=== PATIENT | male | born 1955 | race Caucasian/White ===

== ENCOUNTER 2024-04-19 12:50 | Day surgery (SDC) | payer MEDICARE ==
[2024-04-18 09:04] VITALS: BMI 32.8
[~2024-04-19 12:50] MED LIST: LACTATED RINGERS 1,000 ML IV SCH
[2024-04-19] MEDS: LACTATED RINGERS 1,000 ML IV SCH (13:36)
[2024-04-19] MEDS: LIDOCAINE 1% (10MG/ML) FOR IV START INTRADERMA STA (13:37)
[2024-04-19] MEDS: IV FLUID CONTINUATION 1,000 ML IV ONE (13:37)
--- NOTE | 2024-04-19 13:58 | CT ---
EXAMINATION TYPE: CT chest wo con DATE OF EXAM: 04/19/2024 COMPARISON: 03/06/2024 HISTORY: pain after fall CT DLP: 1202.2 mGycm. Automated Exposure Control for Dose Reduction was Utilized. TECHNIQUE: CT scan of the thorax is performed without IV contrast. FINDINGS: LUNGS: Multiple bilateral pulmonary micronodules. Groundglass changes likely in the basis of atelecta sis. Lobular septal thickening along the periphery of the lungs. No consolidative pneumonia. Correlat e for chronic interstitial lung disease or interstitial pneumonitis. Emphysematous changes. MEDIASTINUM: Lack of IV contrast is noted to limit evaluation for mediastinal and especially hilar ad enopathy. There are no definitive greater than 1 cm hilar or mediastinal lymph nodes. Ascending aorta measures 4.6 cm compatible aneurysmal dilation. Shotty subcentimeter mediastinal and hilar lymph nod es. Lack of contrast limits assessment. OTHER: Hypertrophic and degenerative change of the spine generalized demineralization. Small hiatal h ernia. Atrophy of the pancreas. Low-attenuation of the liver suggestive of hepatic steatosis. Coronar y artery calcification noted. Atherosclerotic change aorta. IMPRESSION: 1. COPD correlate for pulmonary fibrosis. 2. Right upper lobe lung nodule measuring 8 mm. Underlying malignancy in the differential diagnosis. 3. Additional bilateral pulmonary micronodules too small to characterize. 4. There is a 4.6 cm descending thoracic aortic aneurysm. Follow-up recommendations for incidental pulmonary nodules are per [employer] or [employer].
[2024-04-19] MEDS ORDERED: LIDOCAINE 1% INJ 10MG/ML (20 ML MDV) ONE (15:01)
[2024-04-19] MEDS ORDERED: NEOSTIGMINE 1 MG/ML 10 ML VIAL ONE (15:01)
[2024-04-19] MEDS ORDERED: GLYCOPYRROLATE 0.2 MG/ML 2 ML VIAL ONE (15:01)
[2024-04-19] MEDS ORDERED: ROCURONIUM 10 MG/ML (5 ML VIAL) IV ONE (15:01)
[2024-04-19] MEDS ORDERED: PHENYLEPHRINE-0.9% NACL SYG 1,000 MCG/10 ML SYRINGE ONE (15:01)
[2024-04-19] MEDS ORDERED: ePHEDrine 50 MG/ML 1 ML VIAL ONE (15:01)
[2024-04-19] MEDS ORDERED: SUCCINYLCHOLINE CHLORIDE 200 MG/10 ML VIAL IV ONE (15:01)
[2024-04-19] MEDS ORDERED: PROPOFOL 10 MG/ML 20 ML VIAL IV ONE (15:01)
[2024-04-19] MEDS ORDERED: fentaNYL (PF) 50 MCG/ML 2 ML AMP ONE (15:01)
[2024-04-19] MEDS: SODIUM CHLORIDE 0.9% 500 ML 500 ML IV ONE (15:55)
--- NOTE | 2024-04-19 16:04 | P.PCN ---
Date of Procedure: 04/19/24 Operative Findings: Preoperative Diagnosis: Right upper lobe nodule measuring 7x12 mm Postoperative Diagnosis: Right upper lobe nodule measuring 7x12 mm Procedure(s) Performed: Flexible bronchoscopy Robotic-assisted bronchoscopy and addition to radial ultrasound evaluation of the right upper lobe mass Robotic-assisted transbronchial needle aspirate, transbronchial biopsies and transbronchial brushing of a right upper lobe nodule in addition to a bronchioloalveolar lavage Anesthesia: JORIA Surgeon: Lauren Perdue Estimated Blood Loss (ml): 0 Pathology: other Condition: stable Disposition: same day Operative Findings: A physical exam was performed. Informed consent was obtained from the patient after explaining all the risks (pneumothorax, life threatening bleeding, infection and adverse effects due to medications), benefits and alternatives to the procedure which the patient appeared to understand and so stated. The patient was connected to the monitoring devices. General anesthesia was induced and the patient was intubated by anesthesia. A final timeout was performed and the procedure confirmed by the attending staff bronchoscopist. The bronchoscope was inserted and the airway examined. The patient had some secretions within the within the airways. The flexible bronchoscope was removed and the robotic bronchoscope was inserted. Registration was completed. I next guided the robotic bronchoscope using the navigation system into the right post. segment of the RUL. Once in proper position, the bronchoscope was frozen. The radial EBUS probe was placed through the bronchoscope and confirmed abnormal u/s images vs normal lung. A needle was placed through the working channel and under fluoroscopic guidance, we sampled the area thought to have the mass twice. We then used a cloud biopsy pattern with ultrasound confirmation for 2 additional passes with the needle. U/S evaluation was then used to reconfirm location. Forceps were next introduced through working channel and extended the appropriate distance and 3 transbronchial biopsies were performed using fluoroscopic guidance. The u/s probe was then reinserted to confirm location. When confirmed this process was repeated for a total of 8-10 transbronchial biopsies. After reassessment with EBUS, a brush was placed through the extendable working channel for 1 pass with fluoroscopic guidance. U/S evaluation was then used to confirm location. 40ml of saline was then instilled into the area of the lesion. The robotic bronchoscope was removed and the airway inspected with a flexible bronchoscope and 10 ml of effluent from the BAL was collected. The aspirate was bloody and ultimately declotted and based on that, the sample was discarded. Flex. bronchoscope was inserted and regular suctioning was done. At the completion of the procedure, no residual secretions or bloody material within the airway. The bronchoscope was removed. FINDINGS: 1.The airways appeared normal 2 Successful navigation, ultrasonographic identification, and biopsies of right upper lobe nodule 3 The the radial ultrasound view was concentric RECOMMENDATIONS: Await pathology and cytology results The referring physician will be alerted to the results when available. The patient was advised to follow up with the referring physician with the biopsy results Patient will be called with results.
[2024-04-19 16:14] VITALS: TEMP 97.2
[2024-04-19 17:17] VITALS: BP 116/65; PULSE 56; RESP 17
--- NOTE | 2024-04-19 17:58 | XR ---
EXAMINATION TYPE: XR chest 1V DATE OF EXAM: 04/19/2024 COMPARISON: 11/14/2023 HISTORY: 68-year-old male post biopsy to the right upper lobe TECHNIQUE: Single frontal view of the chest is obtained. FINDINGS: Limitation due to large patient body habitus causing hazy densities. Heart upper limits of normal in size. Loop recorder device projecting at the left hilum. Mild diffuse interstitial density may be technical. No consolidation, pneumothorax, or pleural effusion. IMPRESSION: Limitations due to large body habitus. No convincing pneumothorax.
== END 2024-04-19 17:44 | disposition home or self-care (01) ==
LOC: ORWHC2ENDO 12:50
PROVIDERS: ATTEND Internal Medicine Critical Care Medicine
DX: J84.10 Pulmonary fibrosis, unspecified (principal); J44.9 Chronic obstructive pulmonary disease, unspecified; I71.23 Aneurysm of the descending thoracic aorta, without rupture; I25.2 Old myocardial infarction; I10 Essential (primary) hypertension; E78.5 Hyperlipidemia, unspecified; Z79.899 Other long term (current) drug therapy
CPT/HCPCS: 31623; 31624; 31628; 31629; 71045; 71250; 87070; 87102; 87116; 87205; 87206; 87496; 87498; 87502; 87529; 87634; 87635; 87798; 88108; 88305

== ENCOUNTER → 2024-08-31 | Outpatient (CLI) | payer MEDICARE ==
[2024-08-31 09:35] LABS: African American GFR (CKD) 72 (>60 ml/min/1.73 sqM); Blood Urea Nitrogen 21 mg/dL (9-20); Non-African American GFR(CKD) 63 (>60 ml/min/1.73 sqM)
--- NOTE | 2024-08-31 13:04 | CT ---
EXAMINATION TYPE: CT chest w con DATE OF EXAM: 08/31/2024 COMPARISON: Prior CT from 05/11/2024 and older outside studies HISTORY: Solitary pulmonary nodule Automated Exposure Control for Dose Reduction was Utilized. TECHNIQUE: CT scan of the thorax is performed following with IV Contrast, patient injected with 100 mL of Isovue 300. FINDINGS: LUNGS: Mild emphysematous changes with scattered peripheral reticulation and groundglass opacities pa rticularly in the lingula is redemonstrated. There is 5 mm right upper lobe nodule axial image 21 nubia t is stable or less prominent versus most recent CT. No new or enlarging greater than 6 mm pulmonary nodules. No new consolidation. MEDIASTINUM: There are no new greater than 1 cm hilar or mediastinal lymph nodes. No cardiomegaly o r pericardial effusion is seen. At least moderate three-vessel coronary artery calcification is rede monstrated. Ascending aorta measures up to 4.4 cm not significantly changed from most recent prior OTHER: Severe atrophy of the pancreas is again seen. Overlying loop recorder anterior left chest wall medially is redemonstrated. IMPRESSION: No significant new or enlarging greater than 6 mm pulmonary nodules. [facility], , 08/31/2024 1:02 PM
== END | disposition home or self-care (01) ==
LOC: RADCTMAIN 08:54
PROVIDERS: ATTEND Internal Medicine Critical Care Medicine
DX: R91.1 Solitary pulmonary nodule (principal)
CPT/HCPCS: 82565; 84520; 71260; 36415; Q9967

== ENCOUNTER → 2025-02-20 | Outpatient (CLI) | payer MEDICARE ==
[2025-02-20 10:24] LABS: African American GFR (CKD) 66 (>60 ml/min/1.73 sqM); Blood Urea Nitrogen 19 mg/dL (9-20); Non-African American GFR(CKD) 57 (>60 ml/min/1.73 sqM)
--- NOTE | 2025-02-20 12:41 | CT ---
EXAMINATION TYPE: CT chest w con DATE OF EXAM: 02/20/2025 11:01 AM COMPARISON: None. CLINICAL INDICATION: Male, 69 years old with history of R91.1 SPN, CHEK UP ON PULMONARY NODULE, TECHNIQUE: CT scan of the chest is performed with IV Contrast, patient injected with 80 ml mL of Isov ue 300. CT DLP: 611.60 mGycm, Automated exposure control for dose reduction was used. FINDINGS: LUNGS: Emphysematous changes redemonstrated. Previously noted 5 mm right upper lobe pulmonary nodule is not reproduced at this time. No evidence for infiltrates. No new nodules or masses seen. No pleura l effusion. MEDIASTINUM: There are no greater than 1 cm hilar or mediastinal lymph nodes. No pericardial effusi on is seen. Thoracic aorta is of normal caliber. HEART: Size within normal limits. No significant coronary artery calcifications. UPPER ABDOMEN: No significant abnormality appreciated. OTHER: No additional significant abnormality is seen. IMPRESSION: Previously noted 5 mm right upper lobe pulmonary nodule is not reproduced at this time [facility], , 02/20/2025 12:39 PM
== END | disposition home or self-care (01) ==
LOC: RADCTMAIN 09:34
PROVIDERS: ATTEND Internal Medicine Critical Care Medicine
DX: R91.1 Solitary pulmonary nodule (principal)
CPT/HCPCS: 82565; 84520; 71260; 36415; Q9967